=== PATIENT | male | born 1995 | race Caucasian/White ===

== ENCOUNTER 2025-09-25 21:48 | Emergency (ER) | payer OTHER, BC, SELFPAY ==
[2025-09-25 21:48] VITALS: BP 124/74; PULSE 74; RESP 18; TEMP 36.7; O2SAT 100; BMI 22.9
--- NOTE | 2025-09-25 22:24 | EDS_ITS ---
HPI History of Present Illness Chief Complaint: Laceration Narrative Narrative: Patient is a 29-year-old male presenting to the emergency department for a hand abrasion that occurred at work today. Patient states that the piece of metal hit his hand. He states that initially was bleeding and he put a Band-Aid on it. States when he got home and tried to clean it out he looked at the blood and felt lightheaded and nauseous and diaphoretic. He states this has happened multiple times in the past. He was sitting on the bed and fell forward onto the bed and lost consciousness. States this felt typical of his vasovagal reactions in the past. Denies chest pain or shortness of breath. Denies palpitations. Just states he feels tired now. He is unsure when his last tetanus shot was. Denies any other injuries. [facility] Medical History Celiac disease Anxiety IBS (irritable bowel syndrome) Home Medications ?Medication ?Instructions ?Recorded ?Last Taken ?Type dicyclomine 10 mg capsule 10 mg PO BID PRN abdominal p ain 09/25/25 Unknown History Allergy/AdvReac Type Severity Reaction Status Date / Time gluten AdvReac Abd Verified 09/25/25 21:49 cramps/diarrhea Surgical History no surgical history Social History Smoking Status: Never smoker ROS ROS ED ROS Narrative See HPI EXAM Physical Exam Narrative Exam Narrative: Vital signs: Reviewed General: Alert and oriented x 3. No acute distress. Well-appearing. HEENT: Head is normocephalic and atraumatic, sinuses nontender, pupils equal round and reactive. Nares are patent. Oropharynx and throat exams normal. Neck: Supple without lymphadenopathy nontender Cardiovascular: Regular rate and rhythm, no murmurs. No rubs or gallops. Normal S1 and S2 Respiratory: Clear to auscultation bilaterally. No wheezes, rales, rhonchi Abdominal: Soft and nontender. Normal bowel sounds. No guarding or rebound. Nonsurgical abdomen Extremities: There is a small half centimeter very superficial skin abrasion to the right first MCP. There is no laceration. No gaping. No obvious deformity. No tenderness. No bruising. Radial pulse intact. Sensation and motor intact in radial, median and ulnar distribution. Neurological: Cranial nerves II through XII are grossly intact. Normal strength and sensation. Normal cerebellar function The rest of the physical exam is unremarkable Const Vital Signs: 09/25/25 21:48 Temperature 98.1 F Temperature Source Oral Pulse Rate 74 Respiratory Rate 18 Blood Pressure 124/74 H Blood Pressure Mean 90 Pulse Ox 100 Oxygen Delivery Method Room Air MDM MDM MDM Narrative Medical decision making narrative: Patient is a 29-year-old male presenting to the emergency department for a hand abrasion and vasovagal episode that occurred after he saw his blood. Patient states this has happened multiple times before. He had classic prodromal symptoms of diaphoresis, lightheadedness and nausea prior to losing consciousness. He fell forward onto a mattress. He had no chest pain or shortness of breath prior. His vitals are all stable. He is neurologically intact. Given the patient has a prior history of this and it felt similar I do not think is any reason to obtain labs or imaging. In terms of the patient's hand abrasion it was irrigated and there was no laceration or gaping of the wound. It was a simple skin abrasion. Tetanus will be updated. No pain to palpation of the knuckle, there is no indication for imaging. Patient was given wound care instructions. Patient discharged from the Emergency Department. I do not feel that the patient's evaluation reveals any acute reason for admission at this time. I instructed them to either follow-up with their primary care physician or promptly return to the Emergency Department for reevaluation should symptoms worsen or new symptoms develop. I explained what symptoms would indicate the need to return to the emergency department. Shared decision making was used. The patient voiced understanding of the treatment plan and is agreeable with it. Clinical impression: Vasovagal syncope Hand abrasion History & Record Review Discussion w/independent historian: Patient and Significant other Discharge Plan Triage Chief Complaint: Laceration ED Provider: Meagan Coyne Dx/Rx/DC Orders Clinical Impression: Abrasion hand, Syncope, vasovagal Instructions: ED Laceration Superficial No Stitch, ED Fainting, Vagal Reaction Prescriptions: No Action dicyclomine 10 mg capsule 10 mg PO BID PRN (Reason: abdominal pain) Primary Care Provider: Piedad Lepe NP Referrals: Piedad Lepe NP, [employer] [Primary Care Provider, Medical] - As soon as possible Activity Restrictions/Additional Instructions: Keep the wound as clean and dry as you can. Watch for signs of infection including redness, drainage or warmth over the next few days. Your evaluation in the Emergency Department did not reveal any acute reason for admission. However, I want to emphasize that you may be early in the course of a disease process or illness even if it is not present. For this reason you should follow- up within 24 hours for reevaluation with either your primary care physician or if necessary back here in the Emergency Department. You should return to the Emergency Department immediately if your symptoms worsen or new symptoms develop. Print Language: [place]ian Disposition Disposition: Home, Self Care
[2025-09-25 22:52] VITALS: BP 107/68; PULSE 78; RESP 16; TEMP 36.6; O2SAT 96
--- NOTE | 2025-09-26 14:20 | ED.RN ---
Pt returns today, requests [facility], has decided to file yesterday's visit as Worker's Comp. This RN called [facility] as per our records [facility] requires a drug screen. [facility] states [facility] only requires drug screen by supervisor finish end request. 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 Pt is aware he needs to got to [facility] if drug screen is required.
== END 2025-09-25 22:53 | disposition home or self-care (01) ==
PROVIDERS: Emergency Provider Student in an Organized Health Care Education/Training Program; PCP Nurse Practitioner Adult Health; Visit Provider Student in an Organized Health Care Education/Training Program
DX: S60.511A Abrasion of right hand, initial encounter (principal); W22.8XXA Striking against or struck by other objects, initial encounter; Y99.0 Civilian activity done for income or pay; R55 Syncope and collapse; Z23 Encounter for immunization
CPT/HCPCS: 90471; 90715; 99282